=== PATIENT | female | born 1980 | race Caucasian/White ===

== ENCOUNTER 2016-08-10 15:06 | Outpatient (CLI) | payer OTHER ==
[~2016-08-10] VITALS: Ht 144.8 cm; Wt 68.9 kg
[2016-08-10 15:27] VITALS: Ht 144.8 cm; Wt 68.9 kg
[2016-08-10] MEDS ORDERED: PRENAT PO (15:27)
[2016-08-10] MEDS ORDERED: FOLI-49 PO (15:27)
[2016-08-10 15:28] VITALS: BP 119/75; PULSE 102; RESP 18
--- NOTE | 2016-08-10 15:55 | RADRPT ---
PROCEDURE: US OB biophysical profile. CLINICAL INDICATION: decreased movements, gestational diabetes TECHNIQUE: Multiple sonographic images of the pelvis were obtained. The images were reviewed on a PACS workstation. COMPARISON: No prior studies are available for comparison. FINDINGS: There is a single viable intrauterine gestation. Cardiac activity is present with 140 beats per min jackie. There is a vertex presentation. The placenta is anterior. There is no evidence of placental abruption. There is a normal amount of amniotic fluid with an LAMONT = 10.6 cm. Biophysical profile: movement 2/2 tone 2/2. breathing 2/2 LAMONT 2/2 Total 03/14 RPTAT: AA . IMPRESSION: Normal biophysical profile. . .Nitish Ha MD, Date Time Electronically viewed and signed by .Nitish Ha MD, MD on 08/10/2016 15:54 .S/
--- NOTE | 2016-08-10 16:12 | TRIAGE ---
OB Triage Datetime Report Generated by CPN: 08/10/2016 16:12 Datetime: 08/10/2016 15:22 Assessment Type: Triage Maternal Assessment Level of Consciousness: Fully Conscious DTR's/Clonus: DTRs 2+; No Clonus Headache: Denies Blurred Vision: No Respiratory Effort: Unlabored; Regular Rhythm; Equal Expansion Breath Sounds, Left: Clear and Equal Breath Sounds, Right: Clear and Equal Nausea/Vomiting: Denies RUQ Epigastric Pain: Denies Lower Extremities Edema: None Degree: None Upper Extremities Edema: None Degree: None Facial Edema: None Fall Risk Assessment History of Falling: (0) No Secondary Diagnosis: (0) No Ambulatory Aid: (0) Bedrest/Nurse Assist IV Therapy: (0) No Gait: (0) Normal/Bedrest/Immobile Mental Status: (0) Oriented to Own Ability Fall Score: 0 Fall Risk Score Definition: No Risk: No action required Datetime: 08/10/2016 15:21 Time of Arrival: 08/10/2016 15:02 EGA: 34.1 Arrived By: Ambulatory Arrived From: Home Chief Complaint: pt sent in for NST/BPP FOR GDM Movement: Present Contractions: Denies/Absent Rupture of Membranes: Denies Vaginal Bleeding: None Vaginal Discharge: Denies Recent Sexual Intercouse: Denies Abdominal Trauma: Not Applicable Patient Complaints: None Additional Patient Complaints: FBS 08/10/2016 77MG/DL Time Provider Notified: 08/10/2016 15:15 Provider Notified: TALI Initial Plan: NST/BPP
== END 2016-08-10 16:20 | disposition home or self-care (01) ==
LOC: OBT 15:06 → L-D 15:07 → OBT 16:20
PROVIDERS: ATTEND Obstetrics & Gynecology
DX: O24.419 Gestational diabetes mellitus in pregnancy, unspecified control (principal); O36.8130 Decreased fetal movements, third trimester, not applicable or unspecified; O09.523 Supervision of elderly multigravida, third trimester; Z3A.34 34 weeks gestation of pregnancy
CPT/HCPCS: 76818; Z7500; G0463

== ENCOUNTER 2016-08-13 09:46 | Outpatient (CLI) | payer OTHER ==
--- NOTE | 2016-08-10 20:50 | QN ---
Documentation Comment 35 years old with IUP at 34 weeks and 1 day with GDM A1 here today for NST / BPP. Denies any other complaint. Denies any vaginal bleeding, LOF or uterine contractions. Patient reports her fasting blood sugar running 70's and 2 hour post prandial running between 70-110. GA: A&O, NAD Abdomen: Soft, non tender Fundal height: Approrpriate for GA NST: Cat 1 BPP: 03/14 Assessment: IUP at 34 weeks and 1 day GDM A1. diet controlled. NST/ BPP biweekly Plan: Continue NST/ BPP Biweekly Understands goal of strict blood sugar control Follow up with OB clinic in 2-3 days PTL precaution and kick counts discussed DEEPTI CONNOLLY MD Aug 10, 2016 20:50
[~2016-08-13] VITALS: Ht 144.8 cm; Wt 68.8 kg
[~2016-08-13 09:46] MED LIST: FOLI-49 PO; PRENAT PO
[2016-08-13 09:54] VITALS: BP 128/88; PULSE 83; RESP 20; Ht 144.8 cm; Wt 68.8 kg
--- NOTE | 2016-08-13 10:30 | RADRPT ---
PROCEDURE: US OB. CLINICAL INDICATION: Gestational diabetes TECHNIQUE: Pelvic ultrasound performed for biophysical profile. COMPARISON: None FINDINGS: Single intrauterine gestation present with heart rate at 08/1947 beats per minute. Presentation is cephalic. Placenta is anterior, grade II. Biophysical profile score is 8/8 (breathing=2, movement= 2, tone =2, fluid volume=2). Amniotic fluid volume is within normal limits, with LAMONT = 10.6 cm. IMPRESSION: 1. Single living intrauterine gestation in cephalic presentation. 2. Placenta is anterior and grade 2. 3. BPP of 8/8 4. LAMONT 10.6 cm .Dee Diaz MD, Date Time Electronically viewed and signed by .Dee Diaz MD, on 08/13/2016 10:30 .Anna/
--- NOTE | 2016-08-13 11:06 | TRIAGE ---
OB Triage Datetime Report Generated by CPN: 08/13/2016 11:06 Datetime: 08/13/2016 10:09 Pain Assessment Pain Presence: None/Denies Datetime: 08/13/2016 09:55 Heart Rate FHR Baseline Rate: 140 Variability: Moderate 6-25 bpm Accelerations: 15X15 Decelerations: None Datetime: 08/13/2016 09:51 Stage of : OB Triage Assessment Type: Triage Maternal Assessment Level of Consciousness: Fully Conscious DTR's/Clonus: DTRs 2+; No Clonus Headache: Denies Blurred Vision: No Respiratory Effort: Unlabored; Regular Rhythm; Equal Expansion Breath Sounds, Left: Clear and Equal Breath Sounds, Right: Clear and Equal Nausea/Vomiting: Denies RUQ Epigastric Pain: Denies Lower Extremities Edema: None Upper Extremities Edema: None Facial Edema: None Fall Risk Assessment History of Falling: (0) No Secondary Diagnosis: (0) No Ambulatory Aid: (0) Bedrest/Nurse Assist IV Therapy: (0) No Gait: (0) Normal/Bedrest/Immobile Mental Status: (0) Oriented to Own Ability Fall Score: 0 Fall Risk Score Definition: No Risk: No action required Datetime: 08/13/2016 09:50 Time of Arrival: 08/13/2016 09:42 EGA: 34.4 Arrived By: Ambulatory Arrived From: Home Chief Complaint: f/u nst/bpp for gdm/diet controlled, sga Movement: Present Contractions: Denies/Absent Rupture of Membranes: Denies Vaginal Bleeding: None Vaginal Discharge: Denies Recent Sexual Intercouse: Denies Abdominal Trauma: Not Applicable Patient Complaints: None Provider Notified: ramila Datetime: 08/13/2016 09:49 Stage of : OB Triage Pain Assessment Pain Presence: None/Denies Datetime: 08/10/2016 15:22 Fall Score: 0 Fall Risk Score Definition: No Risk: No action required Datetime: 08/10/2016 15:21 EGA: 34.1
== END 2016-08-13 11:00 | disposition home or self-care (01) ==
LOC: OBT 09:46 → L-D 09:48 → OBT 11:00
PROVIDERS: ATTEND Obstetrics & Gynecology
DX: O24.410 Gestational diabetes mellitus in pregnancy, diet controlled (principal); O09.523 Supervision of elderly multigravida, third trimester; Z3A.34 34 weeks gestation of pregnancy
CPT/HCPCS: 76818; Z7500; G0463

== ENCOUNTER 2018-01-04 11:24 | Outpatient (CLI) | END 2018-01-04 13:45 | disposition home or self-care (01) ==